=== PATIENT | female | born 1980 | race Caucasian/White ===

== ENCOUNTER 2020-06-18 17:45 | Emergency (ER) | payer OTHER ==
[~2020-06-18] VITALS: Ht 165.1 cm; Wt 117.0 kg
[~2020-06-18 17:45] MED LIST: FLEXERIL PO; IBUPROFEN 800800 M1 PO; MEDROLDOSEPACK PO; NOHOMEMEDICATIONS; VICODIN 5-5001 EACH PO
[2020-06-18] MEDS ORDERED: ULTRAM 50MG TAB50 MG PO (18:12)
[2020-06-18] MEDS ORDERED: LISINOPRIL-HCT1 EACH PO (18:12)
[2020-06-18 18:48] LABS: ABSOLUTE BASOPHILS 0.2 thou/uL (0.0-0.2); ABSOLUTE EOSINOPHILS 0.3 thou/uL (0.0-0.7); ABSOLUTE LYMPHOCYTES 3.8 thou/uL (0.8-5.3); ABSOLUTE MONOCYTES 0.9 thou/uL (0.0-1.2); ABSOLUTE NEUTROPHILS 8.6 thou/uL (1.6-8.1); BASOPHILS 1.3 %; HEMATOCRIT 38.3 % (37.0-47.0); HEMOGLOBIN 13.3 gm/dL (12.0-15.0); MCH 31.8 pg (26.0-34.0); MCHC 34.6 g/dL (28.0-37.0); MCV 91.8 fL (80.0-100.0); MONOCYTES 6.3 %; MPV 7.8 fl. (7.2-11.1); NUCLEATED RBCS 0 /100WBC; PLATELET COUNT* 360 thou/uL (150-400); POLYS 62.4 %; RBC 4.18 mil/uL (4.20-5.00); RDW-CV 13.2 % (10.5-14.5); WBC 13.7 thou/uL (4.0-11.0)
[2020-06-18 19:00] LABS: CALCIUM 8.5 mg/dL (8.5-10.1); CREATININE 0.8 mg/dL (0.6-1.3); POTASSIUM 3.6 mmol/L (3.5-5.1)
[2020-06-18 19:05] LABS: ALBUMIN 3.4 g/dL (3.4-5.0); TOTAL BILIRUBIN 0.3 mg/dL (<0.1-1.0); TOTAL PROTEIN 7.4 g/dL (6.4-8.2)
[2020-06-18] MEDS ORDERED: NORCO 5-325 TA1 EAC2 PO (19:53)
[2020-06-18] MEDS ORDERED: CLEOCIN HCL150 MG PO (19:53)
[2020-06-18 20:06] VITALS: BP 187/97
== END 2020-06-18 20:06 | disposition home or self-care (01) ==
LOC: M.ERS 17:45
PROVIDERS: Physician Assistant
DX: K11.20 Sialoadenitis, unspecified (principal); I10 Essential (primary) hypertension; G89.29 Other chronic pain; F17.210 Nicotine dependence, cigarettes, uncomplicated

== ENCOUNTER 2020-06-19 11:14 | Emergency (ER) | payer OTHER ==
[~2020-06-19] VITALS: Ht 165.1 cm; Wt 113.4 kg
[~2020-06-19 11:14] MED LIST changes: +CLEOCIN HCL150 MG PO; +LISINOPRIL-HCT1 EACH PO; +NORCO 5-325 TA1 EAC2 PO; +ULTRAM 50MG TAB50 MG PO
[2020-06-19 11:49] LABS: ABSOLUTE BASOPHILS 0.1 thou/uL (0.0-0.2); ABSOLUTE EOSINOPHILS 0.2 thou/uL (0.0-0.7); ABSOLUTE LYMPHOCYTES 2.2 thou/uL (0.8-5.3); ABSOLUTE MONOCYTES 0.7 thou/uL (0.0-1.2); ABSOLUTE NEUTROPHILS 6.1 thou/uL (1.6-8.1); BASOPHILS 1.3 %; EOSINOPHILS 2.4 %; HEMATOCRIT 38.9 % (37.0-47.0); HEMOGLOBIN 13.3 gm/dL (12.0-15.0); LYMPHOCYTES 23.6 %; MCH 31.7 pg (26.0-34.0); MCHC 34.3 g/dL (28.0-37.0); MCV 92.5 fL (80.0-100.0); MONOCYTES 7.3 %; MPV 8.1 fl. (7.2-11.1); NUCLEATED RBCS 0 /100WBC; PLATELET COUNT* 354 thou/uL (150-400); POLYS 65.4 %; RDW-CV 13.2 % (10.5-14.5); WBC 9.4 thou/uL (4.0-11.0)
[2020-06-19 12:03] LABS: CALCIUM 8.1 mg/dL (8.5-10.1); CREATININE 0.7 mg/dL (0.6-1.3); POTASSIUM 4.1 mmol/L (3.5-5.1)
[2020-06-19 12:07] LABS: ALBUMIN 3.2 g/dL (3.4-5.0); TOTAL BILIRUBIN 0.3 mg/dL (<0.1-1.0); TOTAL PROTEIN 7.3 g/dL (6.4-8.2)
[2020-06-19 12:15] LABS: URINE BILIRUBIN NEGATIVE (Negative); URINE BLOOD TRACE (Negative); URINE CLARITY CLEAR; URINE COLOR YELLOW; URINE GLUCOSE-RANDOM NEGATIVE (Negative); URINE KETONES NEGATIVE (Negative); URINE LEUKOCYTES-REFLEX NEGATIVE (Negative); URINE NITRITE-REFLEX NEGATIVE (Negative); URINE PROTEIN NEGATIVE (Negative); URINE UROBILINOGEN 0.2 E.U./dl (0.2-1.0)
[2020-06-19 14:55] VITALS: BP 183/85
== END 2020-06-19 14:55 | disposition short-term general hospital (02) ==
LOC: M.ERS 11:14
PROVIDERS: Nurse Practitioner Family
DX: K11.20 Sialoadenitis, unspecified (principal); Z20.828 Contact with and (suspected) exposure to other viral communicable diseases; M54.2 Cervicalgia; I10 Essential (primary) hypertension; Z79.899 Other long term (current) drug therapy

== ENCOUNTER 2021-03-05 09:10 | Emergency (ER) | payer OTHER ==
[~2021-03-05] VITALS: Ht 162.6 cm; Wt 125.7 kg
[2021-03-05 09:19] VITALS: BP 211/90
[2021-03-05] MEDS ORDERED: OTHER ×2 (09:22→09:23)
== END 2021-03-05 11:24 | disposition home or self-care (01) ==
LOC: M.ERS 09:10
DX: S90.32XA Contusion of left foot, initial encounter (principal); S80.02XA Contusion of left knee, initial encounter; J44.9 Chronic obstructive pulmonary disease, unspecified; I10 Essential (primary) hypertension; G89.29 Other chronic pain; W10.8XXA Fall (on) (from) other stairs and steps, initial encounter; Y93.89 Activity, other specified; Y92.89 Other specified places as the place of occurrence of the external cause; Y99.8 Other external cause status

== ENCOUNTER 2021-09-07 14:03 | Emergency (ER) | payer OTHER ==
[~2021-09-07] VITALS: Ht 165.1 cm; Wt 123.4 kg
[~2021-09-07 14:03] MED LIST changes: +OTHER
[2021-09-07] MEDS ORDERED: LISINOPRIL10 MG PO (14:14)
[2021-09-07 17:53] VITALS: BP 184/112
--- NOTE | 2021-09-08 11:58 | EKG ---
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
== END 2021-09-07 17:53 | disposition left against medical advice (07) ==
LOC: M.ERS 14:03
DX: R06.02 Shortness of breath (principal); Z53.21 Procedure and treatment not carried out due to patient leaving prior to being seen by health care provider

== ENCOUNTER 2021-09-17 08:41 | Emergency (ER) | payer OTHER ==
[~2021-09-17] VITALS: Ht 165.1 cm; Wt 122.5 kg
[~2021-09-17 08:41] MED LIST changes: +LISINOPRIL10 MG PO
[2021-09-17 12:06] LABS: ABSOLUTE BASOPHILS 0.1 thou/uL (0.0-0.2); ABSOLUTE EOSINOPHILS 0.1 thou/uL (0.0-0.7); ABSOLUTE LYMPHOCYTES 2.8 thou/uL (0.8-5.3); ABSOLUTE NEUTROPHILS 7.3 thou/uL (1.6-8.1); BASOPHILS 0.9 %; EOSINOPHILS 1.2 %; HEMATOCRIT 39.9 % (37.0-47.0); HEMOGLOBIN 13.1 gm/dL (12.0-15.0); LYMPHOCYTES 24.5 %; MCH 29.4 pg (26.0-34.0); MCHC 32.7 g/dL (28.0-37.0); MCV 89.9 fL (80.0-100.0); MONOCYTES 8.7 %; MPV 8.2 fl. (7.2-11.1); NUCLEATED RBCS 0 /100WBC; PLATELET COUNT* 346 thou/uL (150-400); POLYS 64.7 %; RBC 4.44 mil/uL (4.20-5.00); RDW-CV 13.5 % (10.5-14.5); WBC 11.3 thou/uL (4.0-11.0)
[2021-09-17 12:17] LABS: CALCIUM 7.9 mg/dL (8.5-10.1); CREATININE 0.7 mg/dL (0.6-1.3); POTASSIUM 3.6 mmol/L (3.5-5.1)
[2021-09-17 12:33] LABS: ALBUMIN 3.2 g/dL (3.4-5.0); MAGNESIUM 1.7 mg/dL (1.8-2.4); TOTAL BILIRUBIN 0.6 mg/dL (<0.1-1.0)
[2021-09-17 15:00] LABS: INFLUENZA A ANTIGEN Negative (Negative); INFLUENZA B ANTIGEN Negative (Negative)
[2021-09-17 15:03] LABS: URINE BILIRUBIN NEGATIVE (Negative); URINE BLOOD TRACE (Negative); URINE CLARITY CLEAR; URINE COLOR YELLOW; URINE GLUCOSE-RANDOM NEGATIVE (Negative); URINE KETONES NEGATIVE (Negative); URINE LEUKOCYTES-REFLEX NEGATIVE (Negative); URINE NITRITE-REFLEX NEGATIVE (Negative); URINE PROTEIN NEGATIVE (Negative); URINE UROBILINOGEN 0.2 E.U./dl (0.2-1.0)
--- NOTE | 2021-09-17 15:03 | EKG ---
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 : 1980 Requested By: Noelle Porter Order Number: [id number] MD: Jayce Pina Measurements Intervals [place] Rate: 102 P: 39 [place]: 145 QRS: 17 QRSD: 81 T: 88 QT: 341 QTc: 445 Interpretive Statements Sinus tachycardia Probable left atrial enlargement Baseline wander in lead(s) V1 Compared to ECG 09/07/2021 14:04:25 Sinus rhythm no longer present Electronically Signed On 09-17-2021 15:03:21 [employer] by Jayce Pina [email or web address] <ELECTRONICALLY SIGNED> By: Jayce Pina MD, [facility] 09/17/21 1503 0848 0848 Jayce Pina MD, [facility] /EPI
[2021-09-17] MEDS ORDERED: ZANAFLEX4 MG PO (15:36)
[2021-09-17] MEDS ORDERED: CEFDINIR300 MG PO (15:36)
[2021-09-17] MEDS ORDERED: PROMETHAZINE V120 ML PO (15:36)
[2021-09-17] MEDS ORDERED: VENTOLIN HFA 1818 GM INH (15:36)
[2021-09-17 15:40] VITALS: BP 164/80
== END 2021-09-17 15:40 | disposition home or self-care (01) ==
LOC: M.ERS 08:41
PROVIDERS: Nurse Practitioner Family
DX: R07.89 Other chest pain (principal); Z20.822 Contact with and (suspected) exposure to COVID-19; R06.02 Shortness of breath; M62.830 Muscle spasm of back; I10 Essential (primary) hypertension; J44.9 Chronic obstructive pulmonary disease, unspecified; Z79.899 Other long term (current) drug therapy; Z86.16 Personal history of COVID-19